=== PATIENT | male | born 1990 | race Caucasian/White ===

== ENCOUNTER 2018-06-02 00:43 | Emergency (ER) | payer OTHER ==
--- NOTE | 2018-06-02 00:49 | ED Physician Documentation ---
Sore Throat/Dental Pain - HISTORIAN Historian: patient - HPI Stated Complaint: dental pain Chief Complaint: Dental Pain Onset: days ago (4) Context: Other (hes not sure ) Associated Symptoms: chills, moderate, L ear pain. denies: fever, sore throat, unable to swallow Worsened By: heat, cold Further Comments: yes (He states he started with dull dental pain. He reports that a day ago he took an amoxicillin and Tylenol #3 and this did nothing for the pain. He reports today he tried to sleep and he was just up and down with no relief. Reports he took Ibuprofen about two hours ago.) - ROS CONST: no problems CVS/RESP: none GI/: denies: nausea, vomiting MS/SKIN/LYMPH: denies: rash NEURO/PSYCH: none - PAST HX Past History: none Immunizations: UTD Allergies/Adverse Reactions: Allergies Allergy/AdvReac Type Severity Reaction Status Date / Time No Known Allergies Allergy Verified 06/02/18 02:14 Home Medications: Ambulatory Orders Medication Instructions Recorded NK 06/02/18 - SOCIAL HX Smoking History: chew Alcohol Use: rarely Drug Use: none - FAMILY HX Family History: No - REVIEWED ASSESSMENTS Nursing Assessment Reviewed: Yes Vitals Reviewed: Yes Progress - Progress Progress: 0120: awaiting lab and xray DG 0136: refusing CT at this time DG 0152: he is refusing the CT scan at this time. Discussion of risk and possible outcomes. He and spouse are aware. DG 0205: pain is improved and fever is 99.7 DG Dental Pain Physical Exam - EXAM General Appearance: no acute distress, alert Head/Neck: head nml inspection. No: pain over sinuses, mandibular swelling (L), facial erythema Eyes: eyes nml inspection Mouth/Throat: lips nml, gums nml, other (exam limited he will not open jaw all the way. No visable redness or swelling or drainge. Exterior jaw without redness. Mild tenderness to top of ear per his report ) Respiratory: no resp. distress, breath sounds nml CVS: reg. rate & rhythm, heart sounds nml Abdomen: soft, no distension, non-tender Extremities: non-tender, nml ROM Skin: warm/dry, normal color Neuro/Psych: none Discharge Clincal Impression: Dental disorder Referrals: Laura Hollingsworth MD [Primary Care Provider] - 2 Days Comments: 1. Clindamycin 300 mg take 1 by mouth three times per day x 10 days 2. medrol dose pack - as directed 3. Tramadol 50 mg take 1 by mouth every 8 hours as needed for pain 4. OTC meds as directed as needed for pain 5. Follow up with dentist on Fri with appt 6. Return to ER for any concerns Condition: Stable Disposition: 01 HOME, SELF-CARE Decision to Admit: NO (t) Date of Decison to Admit: 06/02/18 Decision Time: 02:40
[2018-06-02] MEDS ORDERED: KETOROLAC TROMETHAMINE 30 MG/1ML VIAL IVP ONE (01:23)
[2018-06-02] MEDS ORDERED: 0.9 % SODIUM CHLORIDE 1,000 ML IV ONE ×2 (01:35→01:36)
[2018-06-02 01:49] VITALS: BP 135/93
[2018-06-02] MEDS ORDERED: CLINDAMYCIN HCL 150 MG CAPSULE PO ONE ×2 (01:57→02:22)
[2018-06-02] MEDS ORDERED: traMADol HCL 50 MG TABLET PO ONE (02:22)
[2018-06-02] MEDS ORDERED: traMADol HCL 50 MG TABLET ONE (02:25)
[2018-06-03 16:36] LABS: eGFR (Non-African) > 60
[2018-06-04 07:22] LABS: BASOPHILS % 0.4 (0.0-1.5); EOSINOPHILS % 1.3 % (0.0-6.8); MEAN CORPUSCULAR HEMOGLOBIN 29.5 pg (28.0-34.0); MONOCYTES % 5.1 % (0.0-11.0); NEUTROPHILS # 7.6 # k/uL (1.4-7.7)
== END 2018-06-02 02:38 | disposition home or self-care (01) ==
LOC: ED 00:43
DX: K08.89 Other specified disorders of teeth and supporting structures (principal)
CPT/HCPCS: 36415; 80053; 85025; 87070; 87400; 87880; 96365; 96375; 99282; 99284; A9270; J1885; J7030; S1016